=== PATIENT | male | born 1995 | race African-American/Black ===

== ENCOUNTER 2020-09-04 06:20 | Emergency (ER) | payer SELFPAY ==
[~2020-09-04] VITALS: Ht 172.7 cm; Wt 77.1 kg
[~2020-09-04 06:20] MED LIST: IBUPROFEN600 MG ORAL; NORCO 5-325 TA1 EACH ORAL
--- NOTE | 2020-09-04 07:38 | Emergency Room Report ---
History of Present Illness General Chief Complaint: Wound Recheck/Suture Removal Source: Patient Present Illness HPI Patient presents with request of removal of his sutures involving the right foot The trauma occurred about 1 month ago reports that he was at [facility] Patient presents now for removal he has been told to go back to the hospital about 2 weeks however reports that the area was not Ready to be removed Denies any other trauma since then denies any discharge denies any fevers or chills Allergies: Coded Allergies: No Known Allergies (Unverified , 06/21/19) COVID-19 Screening Contact w/high risk pt: No Experienced COVID-19 symptoms?: No 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 COVID-19 Screening: Negative COVID-19 COVID-19 Testing 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 Patient History Past Medical History: see triage record Reviewed Nursing Documentation: PMH: Agreed; PSxH: Agreed Nursing Documentation-PMH Past Medical History: No Stated History Review of Systems All Other Systems: negative except mentioned in HPI Physical Exam Vital Signs Date Time Temp Pulse Resp B/P (MAP) Pulse Ox O2 Delivery O2 Flow Rate FiO2 09/04/20 07:17 98.8 63 20 125/79 (94) 96 Room Air Sp02 EP Interpretation: reviewed, normal General Appearance: well appearing, no apparent distress Head: normocephalic, atraumatic Eyes: bilateral eye PERRL, bilateral eye EOMI ENT: hearing grossly normal, EOM grossly intact Neck: supple Respiratory: normal breath sounds, no respiratory distress, no retraction Cardiovascular #1: regular rate, rhythm Gastrointestinal: non tender, soft Musculoskeletal: other - Patient able to dorsiflex and extend at the foot moves all toes well Neurologic: alert, oriented x3 Psychiatric: normal inspection Skin: other - 2 areas that are involved one at the midpoint medially of the foot, another area just more proximal to that in the medial distal tibial area. Both areas have significant scab formation no obvious fluctuance. And sutures are in place Lymphatic: no adenopathy Procedures Laceration/Wound Repair Laceration/Wound Repair : Patient Tolerated: Well Complications: None Progress The first area of laceration at the midpoint of the foot itself approximately 1- 1/2 cm, area cleansed and prepped appropriately total of 5 sutures were removed in the appropriate manner with a suture removal kit without any incidents. No obvious dehiscence The second area approximately 1-1/2 cm at the distal tibia medially , area also prepped and cleansed total of 5 sutures removed without any incidents patient tolerated well no obvious dehiscence Medical Decision Making Diagnostic Impression: Primary Impression: Encounter for wound re-check Additional Impression: Encounter for removal of sutures ER Course Area cleansed and prepped there is no obvious signs of dehiscence however there is significant scab formation Evidence of some keloid presentation as well no obvious fluctuance no signs of any infectious process otherwise No obvious dehiscence the sutures were removed appropriately They have been retained for prolonged period of time which can cause other secondary problems nevertheless at this time no other emergent process was seen patient does require close outpatient follow-up primary care physician consultation and will follow closely as an outpatient process Last Vital Signs Date Time Temp Pulse Resp B/P (MAP) Pulse Ox O2 Delivery O2 Flow Rate FiO2 09/04/20 07:17 98.8 63 20 125/79 (94) 96 Room Air Status: improved Disposition: HOME, SELF-CARE Condition: Improved Referrals: [facility] Patient Instructions: Wound Check, Suture Removal, Care After Additional Instructions: Patient is provided with the discharge instructions notified to follow up with primary doctor in the next 2-3 days otherwise return to the er with any worsening symptoms. Please note that this report is being documented using [employer] technology. This can lead to erroneous entry secondary to incorrect interpretation by the dictating instrument. Elba Mobley DO Sep 04, 2020 07:38
[2020-09-04 07:39] VITALS: BP 122/76
--- NOTE | 2020-09-04 07:41 | NUR ---
pt arrived for suture removal. sutures placed at [facility] ER 1 month ago. pt states he went to get them taken out after 2 weeks but they were not ready to be removed. sutures to R ankle and foot. no drainage present. no swelling noted. pt able to move extremities. color/sensation intact, cap refill <3 sec. pt denies pain. sutures removed by MD, no issues noted. pt verbalizes post-suture care, verbalizes to followup with clinic for further eval and return if condition worsens. skin around area closed, healing, dry skin present. no edema. pt VSS. pt cleared for discharge by MD. pt ambulatory on discharge.
--- NOTE | 2020-09-04 07:45 | NUR ---
ED Nurse Note: Pt cleared by health care Provider for discharge. DC instructions/prescription was given and explained to pt and verbalized understanding of teachings. All medical deviecs such as ID band removed. Pt is AAO x4, ambulatory and left with all personal belongings.
== END 2020-09-04 07:39 | disposition home or self-care (01) ==
LOC: EMR 07:00
DX: Z48.02 Encounter for removal of sutures (principal); L91.0 Hypertrophic scar
CPT/HCPCS: 99282